=== PATIENT | female | born 1960 | race Caucasian/White ===

== ENCOUNTER 2024-08-28 11:08 | Day surgery (SDC) | payer BC | END 2024-09-15 16:31 | disposition home or self-care (01) | LOC: CSHNM 11:08 | PROVIDERS: ATTEND Surgery | DX: C50.912 Malignant neoplasm of unspecified site of left female breast (principal) | CPT/HCPCS: 78195; A9541 ==

== ENCOUNTER 2025-07-28 06:15 | Day surgery (SDC) | payer BC ==
[2025-07-22 10:34] VITALS: BMI 20.8
[2025-07-28] MEDS ORDERED: PROPOFOL 40 ML ONE (07:43)
[2025-07-28] MEDS ORDERED: Lidocaine 1% PF 5 ML VIAL ONE ×2 (07:44→08:22)
[2025-07-28] MEDS ORDERED: PROPOFOL 20 ML ONE (08:51)
[2025-07-28] MEDS ORDERED: Sevoflurane 250 ML INH ANEST BOTTLE ONE (12:44)
== END 2025-07-28 10:00 | disposition home or self-care (01) ==
LOC: CSHSDC 06:15
PROVIDERS: ATTEND Surgery
PROC: 0DBE8ZX Excision of Large Intestine, Via Natural or Artificial Opening Endoscopic, Diagnostic (ICD-10-PCS; principal; 2025-07-28)
PROC: 0DJ08ZZ Inspection of Upper Intestinal Tract, Via Natural or Artificial Opening Endoscopic (ICD-10-PCS; principal; 2025-07-28)
DX: Z12.11 Encounter for screening for malignant neoplasm of colon (principal)
CPT/HCPCS: 0652T; 45380; 88305; J2704